=== PATIENT | female | born 1960 | race African-American/Black ===

== ENCOUNTER 2016-07-20 00:01 | Emergency (ER) | payer SELFPAY ==
[~2016-07-20] VITALS: Ht 157.5 cm; Wt 86.5 kg
[2016-07-20] MEDS ORDERED: ONDANSETRON 2MG/ML, 2ML ONE (01:16)
[2016-07-20] MEDS ORDERED: MORPHINE SULFATE 4 MG/ML, 1ML ONE (01:16)
[2016-07-20] MEDS ORDERED: MORPHINE SULFATE 4 MG/ML, 1ML IVPush PRN (01:30)
[2016-07-20] MEDS ORDERED: LISI5TAB7 PO (01:30)
[2016-07-20] MEDS ORDERED: ONDANSETRON 2MG/ML, 2ML IVPush ONE (01:30)
[2016-07-20 01:33] LABS: BLOOD UREA NITROGEN 13 mg/dL (7-18)
[2016-07-20 01:46] VITALS: BP 143/98
[2016-07-20] MEDS ORDERED: PLEASE ENTER ALLERGIES MC SCH ×2 (02:00)
[2016-07-20 02:03] LABS: HCG UR OBC PASS
== END 2016-07-20 02:58 | disposition home or self-care (01) ==
LOC: ED 02:52
DX: S39.012A Strain of muscle, fascia and tendon of lower back, initial encounter (principal); I10 Essential (primary) hypertension; M54.9 Dorsalgia, unspecified; G89.29 Other chronic pain; X58.XXXA Exposure to other specified factors, initial encounter; Y93.89 Activity, other specified; Y99.8 Other external cause status; Y92.89 Other specified places as the place of occurrence of the external cause
CPT/HCPCS: 36415; 80048; 81003; 81025; 82040; 85025; 96374; 96375; 99284; J2405

== ENCOUNTER → 2016-08-16 | Outpatient (CLI) | payer MEDICAID ==
[~2016-08-16] MED LIST: LISI5TAB7 PO
== END | disposition home or self-care (01) ==
LOC: CFH 07:50
PROVIDERS: ATTEND Physician Assistant Medical
DX: M54.16 Radiculopathy, lumbar region (principal); M47.894 Other spondylosis, thoracic region; M47.896 Other spondylosis, lumbar region; M47.897 Other spondylosis, lumbosacral region; M48.07 Spinal stenosis, lumbosacral region
CPT/HCPCS: 72148